=== PATIENT | female | born 2000 | race Two or more races ===

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

== ENCOUNTER → 2020-07-03 16:14 | Outpatient (CLI) | payer OTHER, SELFPAY ==
[2020-07-06 03:06] LABS: Chlamydia By Nucleic Acid AMP Negative (Negative)
[2020-07-06 16:59] LABS: Gonococcus By Nucleic Acid AMP Negative (Negative)
== END ==
PROVIDERS: Visit Provider Student in an Organized Health Care Education/Training Program
DX: Z30.430 Encounter for insertion of intrauterine contraceptive device (principal); Z11.3 Encounter for screening for infections with a predominantly sexual mode of transmission
CPT/HCPCS: 87491; 87591